=== PATIENT | male | born 2000 | race Two or more races ===

== ENCOUNTER 2022-06-15 19:24 | Emergency (ER) | payer OTHER ==
[2022-06-15 19:30] VITALS: BP 132/84; PULSE 90; RESP 18; TEMP 97.3; BMI 25.8
[2022-06-15] MEDS ORDERED: KETOROLAC TROMETHAMINE 60 MG/2 ML VIAL IM ONE (20:03)
[2022-06-15] MEDS ORDERED: KETOROLAC TROMETHAMINE 30 MG/1 ML VIAL ONE (20:05)
== END 2022-06-15 20:36 | disposition home or self-care (01) ==
LOC: JERFT 19:24 → JER 19:24 → JERFT 20:36
PROC: 3E0233Z Introduction of Anti-inflammatory into Muscle, Percutaneous Approach (ICD-10-PCS; principal; 2022-06-15)
DX: J06.9 Acute upper respiratory infection, unspecified (principal); R51.9 Headache, unspecified
CPT/HCPCS: 0241U-QW; 99283-25

== ENCOUNTER 2022-08-25 11:37 | Emergency (ER) | payer OTHER ==
[2022-08-25 12:23] VITALS: BP 112/73; PULSE 77; RESP 17; TEMP 98.1; BMI 23.7
== END 2022-08-25 12:54 | disposition home or self-care (01) ==
LOC: JER 11:37
DX: J06.9 Acute upper respiratory infection, unspecified (principal)
CPT/HCPCS: 0241U-QW; 99283-25

== ENCOUNTER 2024-01-28 18:25 | Emergency (ER) | payer OTHER ==
[2024-01-28 18:37] VITALS: BP 131/81; PULSE 80; RESP 20; TEMP 98; BMI 32.3
[2024-01-28] MEDS ORDERED: BACITRACIN ZINC 15 GM TUBE TOPICAL OINTMENT ONE (20:07)
[2024-01-28] MEDS ORDERED: IBUPROFEN 600 MG TABLET (FP) PO ONE (20:07)
[2024-01-28] MEDS ORDERED: ACETAMINOPHEN 500 MG TABLET (FP) ONE (20:08)
[2024-01-28] MEDS: BACITRACIN ZINC 15 GM TUBE TOPICAL OINTMENT TP ONE (20:23)
[2024-01-28] MEDS: IBUPROFEN 600 MG TABLET (FP) PO ONE (20:23)
[2024-01-28] MEDS: ACETAMINOPHEN 500 MG TABLET (FP) PO ONE (20:23)
== END 2024-01-28 20:24 | disposition home or self-care (01) ==
LOC: JERFT 18:25
DX: S00.81XA Abrasion of other part of head, initial encounter (principal); W31.9XXA Contact with unspecified machinery, initial encounter
CPT/HCPCS: 99283-25

== ENCOUNTER 2024-05-24 05:43 | Emergency (ER) | payer OTHER ==
[2024-05-24 05:50] VITALS: TEMP 98; BMI 26.4
[2024-05-24] MEDS ORDERED: FAMOTIDINE 20 MG/50 ML IVPB 20 MG/50 ML MG IVPB ONE (05:54)
[2024-05-24] MEDS ORDERED: DEXAMETHASONE SOD PHOSPHATE 10 MG/1 ML VIAL ONE (05:54)
[2024-05-24] MEDS: DEXAMETHASONE SOD PHOSPHATE 10 MG/1 ML VIAL IVPUSH ONE (06:21)
[2024-05-24] MEDS: LACTATED RINGERS SOLUTION 1000 ML INFUS.BAG IV ONE (06:29)
[2024-05-24] MEDS: FAMOTIDINE 20 MG/50 ML IVPB 20 MG/50 ML MG IVPB ONE (07:07)
[2024-05-24 07:50] VITALS: BP 118/81; PULSE 67; RESP 16
== END 2024-05-24 08:43 | disposition home or self-care (01) ==
LOC: JER 05:43
PROC: 3E033GC Introduction of Other Therapeutic Substance into Peripheral Vein, Percutaneous Approach (ICD-10-PCS; principal; 2024-05-24)
PROC: 3E033GC Introduction of Other Therapeutic Substance into Peripheral Vein, Percutaneous Approach (ICD-10-PCS; 2024-05-24)
PROC: 3E033GC Introduction of Other Therapeutic Substance into Peripheral Vein, Percutaneous Approach (ICD-10-PCS; 2024-05-24)
DX: T78.40XA Allergy, unspecified, initial encounter (principal); R21 Rash and other nonspecific skin eruption; L29.9 Pruritus, unspecified
CPT/HCPCS: 99284-25; J1100